=== PATIENT | male | born 1970 | race Caucasian/White ===

== ENCOUNTER 2020-03-22 11:49 | Emergency (ER) | payer OTHER ==
[~2020-03-22] VITALS: Ht 180.3 cm; Wt 95.3 kg
[2020-03-22 11:58] VITALS: BP 124/92
[2020-03-22] MEDS ORDERED: LANOXIN 0.25M0.25 M1 PO (12:04)
[2020-03-22] MEDS ORDERED: TENORMIN25 MG PO (12:04)
[2020-03-22] MEDS ORDERED: PERCOCET 5-3251 EACH PO (14:07)
== END 2020-03-22 14:55 | disposition home or self-care (01) ==
LOC: ER 11:49
DX: S86.112A Strain of other muscle(s) and tendon(s) of posterior muscle group at lower leg level, left leg, initial encounter (principal); Z79.899 Other long term (current) drug therapy; Z88.2 Allergy status to sulfonamides; Z88.6 Allergy status to analgesic agent; W22.8XXA Striking against or struck by other objects, initial encounter; Y93.89 Activity, other specified; Y92.89 Other specified places as the place of occurrence of the external cause; Y99.8 Other external cause status